=== PATIENT | female | born 1945 | race Caucasian/White ===

== ENCOUNTER → 2018-11-01 | Day surgery (SDC) | payer OTHER, BC ==
--- NOTE | 2018-11-05 14:35 | PATH ---
Surgical Pathology Report Patient Name: OMID ZHOU [facility]. Rec. #: [id number] /Age/Gender: 1945 (Age: 73) / F Account: [id number] Location: [facility] Taken: 11/01/2018 Received: 11/01/2018 Reported: 11/05/2018 Physicians: Gilma Lacey M.D. Specimen(s) Received A: LEFT BREAST SPECIMEN -SITE1- ANTERIOR WITH CALCIFIATIONS B: LEFT BREAST SPECIMEN -SITE 1- ANTERIOR WITHOUT CALCIFICATIONS C: LEFT BREAST SPECIMEN - SITE 2 -POSTERIOR WITH CALCIFICATIONS D: LEFT BREAST SPECIMEN - SITE 2 -POSTERIOR WITHOUT CALCIFICATIONS Clinical History Nonpalpable lesion Mammographic findings: suspicious calcification 2 sites: Site #1, anterior retroareolar; Site 2 posterior, retroareolar Final Diagnosis A. BREAST, LEFT, SITE 1, ANTERIOR WITH CALCIFICATIONS, STEREOTACTIC BIOPSY: DUCTAL CARCINOMA IN SITU (DCIS), MICROPAPILLARY AND CRIBRIFORM TYPE, INTERMEDIATE NUCLEAR GRADE WITH FOCAL NECROSIS AND ASSOCIATED CALCIFICATIONS. B. BREAST, LEFT, SITE 1, ANTERIOR WITHOUT CALCIFICATIONS, STEREOTACTIC BIOPSY: BENIGN FIBROADIPOSE TISSUE. C. BREAST, LEFT, SITE 2, POSTERIOR WITH CALCIFICATIONS, STEREOTACTIC BIOPSY: DUCTAL CARCINOMA IN SITU (DCIS), CRIBRIFORM, SOLID, PAPILLARY AND MICROPAPILLARY TYPE, INTERMEDIATE NUCLEAR GRADE WITH MODERATE NECROSIS AND ASSOCIATED CALCIFICATIONS. D. BREAST, LEFT, SITE 2, POSTERIOR WITHOUT CALCIFICATIONS, STEREOTACTIC BIOPSY: FOCAL DUCTAL CARCINOMA IN SITU (DCIS), CRIBRIFORM TYPE, INTERMEDIATE NUCLEAR GRADE. Results of ER and IN studies performed on blocks A&C at [facility] are as follows: ER (clone [id number] mouse monoclonal antibody by Leica): 100 % nuclear staining with strong intensity (positive). IN (clone16 mouse monoclonal antibody by Leica): ~90 % nuclear staining with strong intensity (positive). Positive and negative controls (internal if applicable) show appropriate results. Formalin fixation and cold ischemic times are within current ASCO/CAP recommendations for ER, IN and Her2 testing. Electronically Signed Germaine Hull M.D. Gross Description A. Received in formalin labeled "left breast, site# 1 anterior, with calcification " are multiple [place]-yellow, cylindrical portions of fibroadipose tissue measuring 3 x 2x 0.5 cm in aggregate. The specimens are submitted in toto in one cassette. B. Received in formalin labeled "left breast specimen site #1, anterior without calcifications" are multiple [place]-yellow, cylindrical portions of fibroadipose tissue measuring 2 x 1.5 x 0.3 cm in aggregate. The specimens are submitted in toto in one cassette. C. Received in formalin labeled "left breast site #2, posterior with calcification" are multiple [place]ton-yellow, cylindrical portions of fibroadipose tissue measuring 2.5 x 1.5 x 0.3 cm in aggregate. The specimens are submitted in toto in one cassette. D. Received in formalin labeled "left breast site #2 posterior without calcification" are multiple [place]ton-yellow, cylindrical portions of fibroadipose tissue measuring 1 x 1.5 x 0.3 cm in aggregate. The specimens are submitted in toto in one cassette. Time to formalin fixation: 5 minutes Total formalin fixation time: approximately 6 hours. BERTA/11/02/2018 cady/11/02/2018
== END | disposition home or self-care (01) ==
LOC: FMAMMOTONE 10-25 10:22
PROVIDERS: ATTEND Surgery Surgical Oncology
PROC: 0HBU3ZX Excision of Left Breast, Percutaneous Approach, Diagnostic (ICD-10-PCS; principal; 2018-11-01)
DX: D05.12 Intraductal carcinoma in situ of left breast (principal); R92.1 Mammographic calcification found on diagnostic imaging of breast
CPT/HCPCS: 19081; 19082; 87899; 88305-TC; 88342-TC; A4648

== ENCOUNTER 2019-01-08 06:44 | Day surgery (SDC) | payer OTHER, BC ==
--- NOTE | 2018-12-28 09:05 | HP ---
Admitting History and Physical - Primary Care Physician PCP: Gilma Lacey - Admission Chief Complaint: left breast cancer History of Present Illness: Patient is a 73 yo female who was noted to have increasing calcifications on mammogram 10/12/2018 in the retroareolar aspect. The patient underwent a stereo bx on 11/01/2018 which was c/w DCIS anteriorly and posteriorly. ER and ND positive. The patient underwent an MRI on 11/09 which was c/w known cancer as well as a right 8-9 o'clock .6 cm enhancing mass. US revealed this to be a benign mass. The patient is now scheduled to have a left breast WE with NL pdg genetic results. History Source: Patient Limitations to Obtaining History: No Limitations - Past Medical History CREDIT REVIEW MANAGER: Yes: Other (chronic headaches) Cardiovascular: Yes: HTN, Hyperlipdemia - Smoking History Smoking history: Never smoked - Alcohol/Substance Use Hx Alcohol Use: Yes (SOCIAL) Home Medications - Allergies Allergies/Adverse Reactions: Allergies Allergy/AdvReac Type Severity Reaction Status Date / Time Sulfa (Sulfonamide Allergy Severe Verified 11/30/13 20:07 Antibiotics) - Home Medications Home Medications: Ambulatory Orders Amlodipine Besylate [Norvasc -] 5 mg PO DAILY 11/30/13 Aspirin [ASA -] 81 mg PO DAILY 11/30/13 Atorvastatin Calcium [Lipitor] 5 mg PO HS 11/30/13 Butalb/Acetaminophen/Caffeine [Fioricet 50-300-40 mg Capsule] 1 each PO PRN PRN 11/30/13 Fluticasone Prop 0.05% Nasal [Flonase -] 1 - 2 spray NS DAILY 08/31/14 Hydrocortisone 2.5% Topical Cr [Anusol 2.5% Hc Cream -] 1 applic TP BID Omeprazole [Prilosec (RX)] 40 mg PO DAILY 08/31/14 Family Disease History - Family Disease History Family Disease History: CA: Mother (pancreatic cancer) Review of Systems - Review of Systems Gastrointestinal: reports: Indigestion Musculoskeletal: reports: Joint Pain Physical Examination Constitutional: Yes: Well Nourished Breast(s): Yes: Other (Breast are symmetrical without any palpable masses or adenopathy noted bilaterally.) Problem List - Problems (1) Breast cancer, left Code(s): C50.912 - MALIGNANT NEOPLASM OF UNSPECIFIED SITE OF LEFT FEMALE BREAST Qualifiers: Breast location: central portion of breast Estrogen receptor status: positive Patient sex: female Qualified Code(s): C50.112 - Malignant neoplasm of central portion of left female breast; Z17.0 - Estrogen receptor positive status [ER+] Assessment/Plan Plan: Left breast WE with needle localization
[2019-01-03 12:24] VITALS: BMI 25.4
[2019-01-08] MEDS ORDERED: PROPOFOL 20 ML ONE ×3 (10:39→11:25)
[2019-01-08] MEDS ORDERED: MIDAZOLAM HCL 2 MG/2 ML SINGLE DOSE VIAL ONE ×2 (10:39→10:53)
[2019-01-08] MEDS ORDERED: LIDOCAINE HCL/PF 2% SDV 5ML VIAL ONE (10:40)
[2019-01-08] MEDS ORDERED: ONDANSETRON 4 MG/2 ML VIAL ONE (10:40)
[2019-01-08] MEDS ORDERED: DEXAMETHASONE SOD PHOSPHATE 4 MG/1 ML VIAL ONE (10:40)
[2019-01-08] MEDS ORDERED: LIDOCAINE HCL 1% PRESERVATIVE FREE - 30ML VIAL ONE (10:54)
[2019-01-08] MEDS ORDERED: BUPIVACAINE HCL 0.25% 125 MG/50 ML VIAL ONE (10:54)
[2019-01-08] MEDS ORDERED: BUPIVACAINE HCL/PF 2.5 MG/ML - 30 ML VIAL IJ ONE (11:04)
[2019-01-08 13:29] VITALS: TEMP 98.1
--- NOTE | 2019-01-08 13:32 | OP ---
Operative Note - Note: Operative Date: 01/08/19 Pre-Operative Diagnosis: Left breast DCIS Operation: Left breast partial mastectomy Surgeon: Gilma Lacey Specimens Removed: Left breast we + margins Estimated Blood Loss (mls): 5
[2019-01-08 13:54] VITALS: BP 142/71; PULSE 75
--- NOTE | 2019-01-09 08:01 | OP ---
DATE OF OPERATION: 01/08/2019 PREOPERATIVE DIAGNOSIS: Mammographically localized left breast partial mastectomy. POSTOPERATIVE DIAGNOSIS: Mammographically localized left breast partial mastectomy. ANESTHESIA: IV sedation with local. ATTENDING SURGEON: Gilma Lacey MD ESTIMATED BLOOD LOSS: Minimal. COMPLICATIONS: None. DESCRIPTION OF PROCEDURE: Patient was made aware of the risks and benefits of the procedure and consented. Preoperatively, she went to the radiology suite where wires were placed next to each indexed lesion. She was then placed in the supine position on the operating room table, and after IV sedation was administered, the operative site was prepped and draped in the usual sterile fashion. Lidocaine 1% with 0.25% bupivacaine mixed in a 1:1 ratio was used for local anesthesia. A circumareolar periareolar incision was then made using electrocautery. Thin skin flaps were made underneath the nipple around the periareolar area. The needles were withdrawn through the puncture site, and the wires through the wound. Tissues around the wires were then sharply excised and submitted with a short suture superior, long suture lateral. Specimen radiograph confirmed the presence of two indexed lesions. Additional segments were taken anterior, deep, medial, lateral, superior and inferior with clips at the new margin. The wound was copiously irrigated with normal saline. Hemostasis was maintained by electrocautery. The breast tissue was rotated to fill in the defect with figure-of-8 sutures of 2-0 Vicryl. The skin was then closed with deep 3-0 Vicryl followed by a running subcuticular 4-0 Monocryl. Steri-Strips, sterile dressing, and a compression bra were then applied, and the patient, having tolerated the procedure well, was transferred to the recovery room in excellent condition. GILMA LACEY M.D. [id number]
--- NOTE | 2019-01-14 09:30 | PATH ---
Surgical Pathology Report Patient Name: OMID ZHOU [facility]. Rec. #: [id number] /Age/Gender: 1945 (Age: 73) / F Account: [id number] Location: [facility] Taken: 01/08/2019 Received: 01/08/2019 Reported: 01/14/2019 Physicians: Gilma Lacey M.D. Specimen(s) Received A: LEFT BREAST WIDE EXCISION B: LEFT BREAST DEEP MARGIN C: LEFT BREAST INFERIOR MARGIN D: LEFT BREAST LATERAL MARGIN E: LEFT BREAST MEDIAL MARGIN F: LEFT BREAST SUPERIOR G: LEFT BREAST ANTERIOR Clinical History DCIS Final Diagnosis A. breast, left, wide excision: Ductal carcinoma in situ (DCIS), Papillary, micropapillary and cribriform type, intermediate nuclear grade, with focal necrosis and associated calcifications. DCIS is present in three of nine slides (3/9), with the largest contiguous FOCUS of DCIS measuring 5 mm in greatest dimension, microscopically. Surgical margins are uninvolved by DCIS; DCIS is at 5 mm from the closest (deep) margin. see specimens B-G FOR final margins. Atypical lobular hyperplasia (ALH). (See note). Prior biopsy site changes are present. Pathologic stage (pTNM):ptis (dcis) pNx. see also DCIS case summary below. Note: E-Cadherin (performed on block A5 at [facility]) is negative in the foci of ALH, which supports lobular phenotype. B. breast, left, deep margin, excision: Benign breast tissue showing small radial scar and focal usual ductal hyperplasia (UDH). C. breast, left, inferior margin, excision: Benign breast tissue. D. breast, left, lateral margin, excision: Benign breast tissue. E. breast, left, medial margin, excision: Benign breast tissue. F. breast, left, superior margin, excision: Benign breast tissue showing small radial scar. G. breast, left, anterior margin, excision: Benign breast tissue. Comments DCIS of the Breast: Surgical Pathology Cancer Case Summary (Based on AJCC TNM 8 th edition) Procedure _X__ Excision (less than total mastectomy) Specimen Laterality _X_ Left Size (Extent) of DCIS Estimated size (extent) of DCIS (greatest dimension using gross and microscopic evaluation): 5 mmNumber of blocks with DCIS: 3 Number of blocks examined: 25 (based on specimens A-G) Histologic Type _X_ Ductal carcinoma in situ Architectural Patterns _X_ Cribriform _X_ Micropapillary _X_ Papillary Nuclear Grade _X_ Grade II (intermediate) Necrosis _X_ Present, focal (small foci or single cell necrosis) Margins _X_ Uninvolved by DCIS Distance from closest margin (millimeters): 5 mm from deep margin in wide excision A. Final deep margin B is negative for DCIS. Regional Lymph Nodes _X_ No lymph nodes submitted or found Pathologic Stage Classification (pTNM, AJCC 8th Edition) Primary Tumor (pT) _X_ pTis (DCIS): Ductal carcinoma in situ Regional Lymph Nodes (pN) _X_ pNx Microcalcifications _X_ Present in DCIS _X_ Present in nonneoplastic tissue Biomarker Studies Results of ER and OK studies performed on prior biopsy ([id number]) at [facility] are as follows: ER (clone [id number] mouse monoclonal antibody by Leica): 100 % nuclear staining with strong intensity (positive). OK (clone16 mouse monoclonal antibody by Leica): ~90 % nuclear staining with strong intensity (positive). Electronically Signed Germaine Hull M.D. Gross Description A. Received in formalin, labeled "left breast wide excision," is a 4.5 x 3.7 x 2.9 cm. washington-yellow, irregular, portion of fibroadipose tissue with a needle localization wire present. There is a short suture marking the superior aspect and a long suture marking the lateral aspect, per the surgeon. There is no skin present. The specimen is inked as follows: superior and lateral blue; inferior green; medial yellow; anterior red; deep black. The specimen is serially sectioned from superior to inferior. Sectioning reveals a 1.0 x 1.0 x 0.9 cm [place], firm focus of fibrous tissue associated with hemorrhage, consistent with a previous biopsy site. There is a panchal metallic clip identified within the focus. No definitive mass is identified. Industrial Electrician Journeyman sections are submitted in 9 cassettes as follows: 4-6-[id number] submitted fibrous tissue from superior to inferior, each with anterior, deep and lateral margins (previous biopsy site in cassettes 2-3); 6-7-fibrous tissue with medial margin; 8-superior margin; 9-inferior margin. Time to formalin fixation: 5 minutes Total formalin fixation time: Approximately 30 hours. B. Received in formalin labeled "left breast deep margin," is a 2.3 x 2.0 x 1.4 cm portion of adipose tissue with a clip marking the new margin, per the surgeon. The new margin is inked black and the specimen is serially sectioned. The specimen is entirely and sequentially submitted in 3 cassettes. C. Received in formalin labeled "left breast inferior margin," is a 2.6 x 2.5 x 1.1 cm portion of fibroadipose tissue with a clip marking the new margin, per the surgeon. The new margin is inked black and the specimen is serially sectioned. The specimen is entirely submitted in 3 cassettes. D. Received in formalin labeled "left breast lateral margin," is a 3.5 x 2.9 x 0.6 cm portion of fibroadipose tissue with a clip marking the new margin, per the surgeon. The new margin is inked black and the specimen is serially sectioned. The specimen is entirely and sequentially submitted in 3 cassettes. E. Received in formalin labeled "left breast medial margin," is a 2.2 x 1.5 x 0.7 cm portion of fibroadipose tissue with a clip marking the new margin, per the surgeon. The new margin is inked black and the specimen is serially sectioned. The specimen is entirely submitted in 3 cassettes. F. Received in formalin labeled "left breast superior margin," is a 1.7 x 1.7 x 0.5 cm portion of fibroadipose tissue with a clip marking the new margin, per the surgeon. The new margin is inked black and the specimen is serially sectioned. The specimen is entirely submitted in 2 cassettes. G. Received in formalin labeled "left breast anterior margin," is a 1.3 x 0.6 x 0.5 cm portion of fibroadipose tissue with a clip marking the new margin, per the surgeon. The new margin is inked black and the specimen is serially sectioned. The specimen is entirely submitted in 2 cassettes. 01/09/2019 [facility]01/09/2019
== END 2019-01-08 13:50 | disposition home or self-care (01) ==
LOC: FASU 06:44
PROVIDERS: ATTEND Surgery Surgical Oncology
PROC: 0HBU0ZZ Excision of Left Breast, Open Approach (ICD-10-PCS; principal; 2019-01-08 11:12)
PROC: 0JX60ZB Transfer Chest Subcutaneous Tissue and Fascia with Skin and Subcutaneous Tissue, Open Approach (ICD-10-PCS; 2019-01-08 11:12)
DX: C50.112 Malignant neoplasm of central portion of left female breast (principal); Z17.0 Estrogen receptor positive status [ER+]; I10 Essential (primary) hypertension; E78.5 Hyperlipidemia, unspecified
CPT/HCPCS: 19281; 88307-TC; 88342-TC; 94760

== ENCOUNTER 2024-05-09 03:59 | Day surgery (SDC) | payer OTHER, BC ==
[2024-05-07 11:02] VITALS: BMI 22.2
[2024-05-09] MEDS ORDERED: DEXTROSE 5%-0.45% SALINE 1,000 ML IV SCH (15:45)
[2024-05-09] MEDS ORDERED: MIDAZOLAM HCL 2 MG/2 ML SINGLE DOSE VIAL ONE (15:57)
[2024-05-09] MEDS ORDERED: PROPOFOL 20 ML ONE (15:57)
[2024-05-09] MEDS: ceFAZolin SODIUM 1 GM VIAL IVPB ONE (16:18)
[2024-05-09] MEDS ORDERED: KETOROLAC TROMETHAMINE 30 MG/1 ML VIAL ONE (16:22)
[2024-05-09] MEDS ORDERED: DEXAMETHASONE SOD PHOSPHATE 4 MG/1 ML VIAL ONE (16:22)
[2024-05-09] MEDS ORDERED: ONDANSETRON 4 MG/2 ML VIAL ONE (16:22)
[2024-05-09 18:15] VITALS: BP 137/63; PULSE 72; RESP 16; TEMP 97.5
== END 2024-05-09 18:45 | disposition home or self-care (01) ==
LOC: JASU-SURG 03:59
PROVIDERS: ATTEND Urology
PROC: 0TC78ZZ Extirpation of Matter from Left Ureter, Via Natural or Artificial Opening Endoscopic (ICD-10-PCS; principal; 2024-05-09 15:30)
PROC: 0T778DZ Dilation of Left Ureter with Intraluminal Device, Via Natural or Artificial Opening Endoscopic (ICD-10-PCS; 2024-05-09 15:30)
DX: N20.1 Calculus of ureter (principal)
CPT/HCPCS: 76000-TC-FY; 94760; C1758; C2617